=== PATIENT | male | born 1975 | race Hispanic/Latino ===

== ENCOUNTER 2020-07-04 08:29 | Outpatient (CLI) | payer OTHER ==
--- NOTE | 2020-07-04 09:24 | ULT ---
BILATERAL LOWER EXTREMITY VENOUS DUPLEX EXAM: Date: INDICATION: Lower extremity pain and edema. FINDINGS: Deep veins of both lower extremities evaluated with ultrasound and Doppler with color Doppler, spectr al analysis, and compression. Deep veins of both lower extremities demonstrate normal blood flow and compression. No evidence of de ep venous thrombosis. IMPRESSION: No evidence of lower extremity deep venous thrombosis. POS: [facility]
== END 2020-07-04 08:30 | disposition home or self-care (01) ==
LOC: BICULT 08:29
PROVIDERS: ATTEND Internal Medicine
DX: M79.89 Other specified soft tissue disorders (principal); M25.571 Pain in right ankle and joints of right foot
CPT/HCPCS: 93970